=== PATIENT | male | born 1995 | race Caucasian/White ===

== ENCOUNTER 2016-07-26 10:30 | Emergency (ER) | payer MEDICAID, SELFPAY ==
[2016-07-26] MEDS ORDERED: ACETAMINOPHEN 325 MG TAB As Ordered ONE (10:59)
[2016-07-26] MEDS ORDERED: ONDANSETRON 4 MG ORAL DISINTEGRATING TAB (S0181) As Ordered ONE (10:59)
--- NOTE | 2016-07-26 11:10 | EDDOCDS ---
Physician Documentation [facility] Name: Thomas Deluca Age: 21 yrs Sex: Male : 1995 Arrival Date: 07/26/2016 Time: 10:30 Bed TR8 Private MD: Disposition: 07/26/16 11:00 Discharged to Home/Self Care. Impression: Influenza due to unidentified influenza virus. - Condition is Stable. - Discharge Instructions: Influenza Adult. - Prescriptions for ZOFRAN ODT 4 mg - dissolve 1 tablet by ORAL route 4 times per day As needed do not chew, do not swallow whole; 10 tablet. - Medication Reconciliation form. - Follow up: Emergency Department; When: As needed. [facility]; When: Call to arrange an appointment; Reason: Recheck today's complaints, Continuance of care, To establish care. - Problem is an ongoing problem. - Symptoms are unchanged. Historical: - Allergies: no known allergies; - Home Meds: 1. none - PMHx: none; - PSHx: none; - Social history: Smoking status: Patient states was never smoker of tobacco. Patient/guardian denies using alcohol, street drugs, No barriers to communication noted, The patient speaks fluent Albanian, Speaks appropriately for age. - Family history: No immediate family members are acutely ill. - : The pt / caregiver states he / she is not on anticoagulants. Home medication list is obtained from the patient. - Exposure Risk Screening:: None identified. Vital Signs: 07/26 10:32 BP 162 / 71 RA Sitting (auto/reg); Pulse 107; Resp 18; Temp 100.9(O); Pulse Ox 97% on jrd R/A; Weight 81.19 kg / 178.99 lbs (R); Height 6 ft. 1 in. (185.42 cm) (R); Pain 3/10; 10:32 Body Mass Index 23.62 (81.19 kg, 185.42 cm) jrd MDM: 10:58 Acetaminophen Tablet 650 mg PO once ordered. cc10 10:58 Ondansetron ODT Oral Disintegrating Tablet 4 mg PO once ordered. cc10 11:07 Financial registration complete. mm15 Administered Medications: 11:02 Drug: Acetaminophen 650 mg [acetaminophen 325 mg tablet (2 tabs)] Route: PO; ttb 11:02 Drug: Ondansetron ODT 4 mg [ondansetron 4 mg disintegrating tablet (1 tabs)] Route: PO; ttb Signatures: Ashley Salguero RN RN ttb Carl Enciso mm15 Fernando Marquez, PAAdielC PA-C cc10 Luis Morris RN RN mb9 MTDD
--- NOTE | 2016-07-26 11:10 | EDDOCDS ---
Nurse's Notes [facility] Name: Thomas Deluca Age: 21 yrs Sex: Male : 1995 Arrival Date: 07/26/2016 Time: 10:30 Bed TR8 Private MD: Diagnosis: Influenza due to unidentified influenza virus Presentation: 07/26 10:40 Presenting complaint: Patient states: stomach pains, n/v/d x2 days. Adult Sepsis ttb Screening: The patient does not have new or worsening altered mentation. Adult Sepsis Screening: Patient's respiratory rate is less than 22. Systolic blood pressure is greater than 100. Patient has a qSOFA score of 0- Negative Sepsis Screen. Suicide/Homicide risk assessment- the patient denies having any suicidal and/or homicidal ideations and does not present with any other emotional, behavioral or mental health complaints. Status: Patient is not a health service worker or dependent. Transition of care: patient was not received from another setting of care. 10:40 Acuity: JAVON Level 3 ttb 10:40 Method Of Arrival: Walkin/Carried/Asstd ttb Triage Assessment: 10:41 General: Appears in no apparent distress, well nourished, Behavior is appropriate for ttb age, cooperative, pleasant. Pain: Location: generalized abd pain (mainly with vomiting). Pt Declines HIV testing. Neurological: Level of Consciousness is awake, alert. Cardiovascular: Chest pain is denied. Respiratory: No deficits noted. Airway is patent Denies cough, shortness of breath. GI: Reports lower abdominal pain, upper abd pain, nausea, vomiting. Derm: Skin is normal. Injury Description: No known injury. Historical: - Allergies: no known allergies; - Home Meds: 1. none - PMHx: none; - PSHx: none; - Social history: Smoking status: Patient states was never smoker of tobacco. Patient/guardian denies using alcohol, street drugs, No barriers to communication noted, The patient speaks fluent Malawian, Speaks appropriately for age. - Family history: No immediate family members are acutely ill. - : The pt / caregiver states he / she is not on anticoagulants. Home medication list is obtained from the patient. - Exposure Risk Screening:: None identified. Screenin:07 Screening information is obtained from the patient. Fall risk: No risks identified. mb9 Assistance ADL's: requires no assistance with activities of daily living. Abuse/DV Screen: The patient / caregiver reports he/she is: not in a situation that causes fear, pain or injury. Nutritional screening: No deficits noted. Advance Directives: There is no active DNR order. home support is adequate. Assessment: 11:07 General: Appears in no apparent distress, Behavior is appropriate for age, cooperative. mb9 Respiratory: Airway is patent Respiratory effort is even, unlabored. GI: Reports nausea. Vital Signs: 10:32 BP 162 / 71 RA Sitting (auto/reg); Pulse 107; Resp 18; Temp 100.9(O); Pulse Ox 97% on jrd R/A; Weight 81.19 kg (R); Height 6 ft. 1 in. (185.42 cm) (R); Pain 3/10; 10:32 Body Mass Index 23.62 (81.19 kg, 185.42 cm) jrd Vitals: 10:32 Log In Time: July 26, 2016 at 10:28. d ED Course: 10:31 Patient visited by Dany Bauer PCA. jrd 10:31 Patient moved to Waiting jrd 10:33 Patient visited by Dany Bauer PCA. jrd 10:33 Patient moved to Pre RCE jrd 10:41 Triage Initiated ttb 10:43 Patient moved to Triage 3 ttb 10:44 Fernando Marquez PA-C is PHCP. cc10 10:44 Martinez Osorio MD is Attending Physician. cc10 10:53 Patient visited by Fernando Marquez PA-C. cc10 10:53 Patient visited by Fernando Marquez PA-C. cc10 11:00 [facility] is Referral Physician. cc10 11:07 Patient moved to TR8 mb9 11:07 The patient / caregiver is instructed regarding the plan of care and ED course. mb9 11:07 No IV's were initiated during this patient's visit. No procedures done that require mb9 assistance. Administered Medications: 11:02 Drug: Acetaminophen 650 mg [acetaminophen 325 mg tablet (2 tabs)] Route: PO; ttb 11:02 Drug: Ondansetron ODT 4 mg [ondansetron 4 mg disintegrating tablet (1 tabs)] Route: PO; ttb Order Results: There are currently no results for this order. Outcome: 11:00 Discharge ordered by Provider. cc10 11:07 Discharge Assessment: patient administered narcotics - no. The following High Risk mb9 Discharge criteria are identified: None. Discharged to home ambulatory. Condition: good Condition: stable Condition: improved. Discharge instructions given to patient, Instructed on discharge instructions, follow up and referral plans. medication usage, Demonstrated understanding of instructions, medications, Pt was receptive of discharge instructions/ teaching. Prescriptions given X 1. No special radiology studies were completed. Property :Personal belongings accompany Pt. 11:09 Patient left the ED. mb9 Signatures: Ashley Salguero, RN RN ttb Fernando Marquez, PA-C PA-C cc10 Dayn Bauer, ASSOCIATE ARTISTIC DIRECTOR ASSOCIATE ARTISTIC DIRECTOR jrd Luis Morris,RN RN mb9 MTDLeslye
--- NOTE | 2016-07-28 12:10 | EDDOCDS ---
Physician Documentation [facility] Name: Thomas Deluca Age: 21 yrs Sex: Male : 1995 Arrival Date: 07/26/2016 Time: 10:30 Bed TR8 Private MD: Disposition: 07/26/16 11:00 Discharged to Home/Self Care. Impression: Influenza due to unidentified influenza virus. - Condition is Stable. - Discharge Instructions: Influenza Adult. - Prescriptions for ZOFRAN ODT 4 mg - dissolve 1 tablet by ORAL route 4 times per day As needed do not chew, do not swallow whole; 10 tablet. - Medication Reconciliation form. - Follow up: Emergency Department; When: As needed. [facility]: [facility]; When: Call to arrange an appointment; Reason: Recheck today's complaints, Continuance of care, To establish care. - Problem is an ongoing problem. - Symptoms are unchanged. Historical: - Allergies: no known allergies; - Home Meds: 1. none - PMHx: none; - PSHx: none; - Social history: Smoking status: Patient states was never smoker of tobacco. Patient/guardian denies using alcohol, street drugs, No barriers to communication noted, The patient speaks fluent Upper Sorbian, Speaks appropriately for age. - Family history: No immediate family members are acutely ill. - : The pt / caregiver states he / she is not on anticoagulants. Home medication list is obtained from the patient. - Exposure Risk Screening:: None identified. Vital Signs: 07/26 10:32 BP 162 / 71 RA Sitting (auto/reg); Pulse 107; Resp 18; Temp 100.9(O); Pulse Ox 97% on jrd R/A; Weight 81.19 kg / 178.99 lbs (R); Height 6 ft. 1 in. (185.42 cm) (R); Pain 3/10; 10:32 Body Mass Index 23.62 (81.19 kg, 185.42 cm) jrd MDM: 10:58 Acetaminophen Tablet 650 mg PO once ordered. cc10 10:58 Ondansetron ODT Oral Disintegrating Tablet 4 mg PO once ordered. cc10 11:07 Financial registration complete. mm15 11:13 [facility] Payment Agreement was scanned into [employer] and attached to record. mm15 14:08 T-Sheet-- Draft Copy was scanned into [employer] and attached to record. klr Administered Medications: 11:02 Drug: Acetaminophen 650 mg [acetaminophen 325 mg tablet (2 tabs)] Route: PO; ttb 11:02 Drug: Ondansetron ODT 4 mg [ondansetron 4 mg disintegrating tablet (1 tabs)] Route: PO; ttb Signatures: Ashley Salguero RN RN ttb Carl Enciso mm15 Fernando Marquez PA-C PASummer cc10 Luis Morris RN RN mb9 Alexandra John klr The chart was reviewed and I authenticate all verbal orders and agree with the evaluation and treatment provided.Attachments: 11:13 [facility] Payment Agreement mm15 14:08 T-Sheet-- Draft Copy klr Chart Complete MTDD
--- NOTE | 2016-07-28 12:10 | EDDOCDS ---
Nurse's Notes [facility] Name: Thomas Deluca Age: 21 yrs Sex: Male : 1995 Arrival Date: 07/26/2016 Time: 10:30 Bed TR8 Private MD: Diagnosis: Influenza due to unidentified influenza virus Presentation: 07/26 10:40 Presenting complaint: Patient states: stomach pains, n/v/d x2 days. Adult Sepsis ttb Screening: The patient does not have new or worsening altered mentation. Adult Sepsis Screening: Patient's respiratory rate is less than 22. Systolic blood pressure is greater than 100. Patient has a qSOFA score of 0- Negative Sepsis Screen. Suicide/Homicide risk assessment- the patient denies having any suicidal and/or homicidal ideations and does not present with any other emotional, behavioral or mental health complaints. Status: Patient is not a automobile service station attendant or dependent. Transition of care: patient was not received from another setting of care. 10:40 Acuity: JAVON Level 3 ttb 10:40 Method Of Arrival: Walkin/Carried/Asstd ttb Triage Assessment: 10:41 General: Appears in no apparent distress, well nourished, Behavior is appropriate for ttb age, cooperative, pleasant. Pain: Location: generalized abd pain (mainly with vomiting). Pt Declines HIV testing. Neurological: Level of Consciousness is awake, alert. Cardiovascular: Chest pain is denied. Respiratory: No deficits noted. Airway is patent Denies cough, shortness of breath. GI: Reports lower abdominal pain, upper abd pain, nausea, vomiting. Derm: Skin is normal. Injury Description: No known injury. Historical: - Allergies: no known allergies; - Home Meds: 1. none - PMHx: none; - PSHx: none; - Social history: Smoking status: Patient states was never smoker of tobacco. Patient/guardian denies using alcohol, street drugs, No barriers to communication noted, The patient speaks fluent Botswanan, Speaks appropriately for age. - Family history: No immediate family members are acutely ill. - : The pt / caregiver states he / she is not on anticoagulants. Home medication list is obtained from the patient. - Exposure Risk Screening:: None identified. Screenin:07 Screening information is obtained from the patient. Fall risk: No risks identified. mb9 Assistance ADL's: requires no assistance with activities of daily living. Abuse/DV Screen: The patient / caregiver reports he/she is: not in a situation that causes fear, pain or injury. Nutritional screening: No deficits noted. Advance Directives: There is no active DNR order. home support is adequate. Assessment: 11:07 General: Appears in no apparent distress, Behavior is appropriate for age, cooperative. mb9 Respiratory: Airway is patent Respiratory effort is even, unlabored. GI: Reports nausea. Vital Signs: 10:32 BP 162 / 71 RA Sitting (auto/reg); Pulse 107; Resp 18; Temp 100.9(O); Pulse Ox 97% on jrd R/A; Weight 81.19 kg (R); Height 6 ft. 1 in. (185.42 cm) (R); Pain 3/10; 10:32 Body Mass Index 23.62 (81.19 kg, 185.42 cm) jrd Vitals: 10:32 Log In Time: July 26, 2016 at 10:28. d ED Course: 10:31 Patient visited by Dany Bauer PCA. jrd 10:31 Patient moved to Waiting jrd 10:33 Patient visited by Dany Bauer PCA. jrd 10:33 Patient moved to Pre RCE jrd 10:41 Triage Initiated ttb 10:43 Patient moved to Triage 3 ttb 10:44 Fernando Marquez PA-C is PHCP. cc10 10:44 Martinez Osorio MD is Attending Physician. cc10 10:53 Patient visited by Fernando Marquez PA-C. cc10 10:53 Patient visited by Fernando Marquez PA-C. cc10 11:00 [facility] is Referral Physician. cc10 11:07 Patient moved to TR8 mb9 11:07 The patient / caregiver is instructed regarding the plan of care and ED course. mb9 11:07 No IV's were initiated during this patient's visit. No procedures done that require mb9 assistance. 11:13 [facility] [place] Payment Agreement was scanned into [employer] and attached to record. mm15 14:08 T-Sheet-- Draft Copy was scanned into [employer] and attached to record. klr Administered Medications: 11:02 Drug: Acetaminophen 650 mg [acetaminophen 325 mg tablet (2 tabs)] Route: PO; ttb 11:02 Drug: Ondansetron ODT 4 mg [ondansetron 4 mg disintegrating tablet (1 tabs)] Route: PO; ttb Order Results: There are currently no results for this order. Outcome: 11:00 Discharge ordered by Provider. cc10 11:07 Discharge Assessment: patient administered narcotics - no. The following High Risk mb9 Discharge criteria are identified: None. Discharged to home ambulatory. Condition: good Condition: stable Condition: improved. Discharge instructions given to patient, Instructed on discharge instructions, follow up and referral plans. medication usage, Demonstrated understanding of instructions, medications, Pt was receptive of discharge instructions/ teaching. Prescriptions given X 1. No special radiology studies were completed. Property :Personal belongings accompany Pt. 11:09 Patient left the ED. mb9 Signatures: Ashley Salguero, RN RN ttb Carl Enciso mm15 Fernando Marquez, PA-C PA-C cc10 Dany Bauer, DIRECTOR OF ONCOLOGY DIRECTOR OF ONCOLOGY Luis PowellRN RN mb9 Alexandra John Chart Complete MTDLeslye
--- NOTE | 2016-07-28 12:10 | EDDOCDS ---
Physician Documentation [facility] Name: Thomas Deluca Age: 21 yrs Sex: Male : 1995 Arrival Date: 07/26/2016 Time: 10:30 Bed TR8 Private MD: Disposition: 07/26/16 11:00 Discharged to Home/Self Care. Impression: Influenza due to unidentified influenza virus. - Condition is Stable. - Discharge Instructions: Influenza Adult. - Prescriptions for ZOFRAN ODT 4 mg - dissolve 1 tablet by ORAL route 4 times per day As needed do not chew, do not swallow whole; 10 tablet. - Medication Reconciliation form. - Follow up: Emergency Department; When: As needed. Follow [facility]: [facility]; When: Call to arrange an appointment; Reason: Recheck today's complaints, Continuance of care, To establish care. - Problem is an ongoing problem. - Symptoms are unchanged. Historical: - Allergies: no known allergies; - Home Meds: 1. none - PMHx: none; - PSHx: none; - Social history: Smoking status: Patient states was never smoker of tobacco. Patient/guardian denies using alcohol, street drugs, No barriers to communication noted, The patient speaks fluent Welsh, Speaks appropriately for age. - Family history: No immediate family members are acutely ill. - : The pt / caregiver states he / she is not on anticoagulants. Home medication list is obtained from the patient. - Exposure Risk Screening:: None identified. Vital Signs: 07/26 10:32 BP 162 / 71 RA Sitting (auto/reg); Pulse 107; Resp 18; Temp 100.9(O); Pulse Ox 97% on jrd R/A; Weight 81.19 kg / 178.99 lbs (R); Height 6 ft. 1 in. (185.42 cm) (R); Pain 3/10; 10:32 Body Mass Index 23.62 (81.19 kg, 185.42 cm) jrd MDM: 10:58 Acetaminophen Tablet 650 mg PO once ordered. cc10 10:58 Ondansetron ODT Oral Disintegrating Tablet 4 mg PO once ordered. cc10 11:07 Financial registration complete. mm15 11:13 [facility] Payment Agreement was scanned into [employer] and attached to record. mm15 14:08 T-Sheet-- Draft Copy was scanned into [employer] and attached to record. klr Administered Medications: 11:02 Drug: Acetaminophen 650 mg [acetaminophen 325 mg tablet (2 tabs)] Route: PO; ttb 11:02 Drug: Ondansetron ODT 4 mg [ondansetron 4 mg disintegrating tablet (1 tabs)] Route: PO; ttb Signatures: Ashley Salguero RN RN ttb Carl Enciso mm15 Fernando Marquez PA-C PASummer cc10 Luis Morris RN RN mb9 Alexandra John klr The chart was reviewed and I authenticate all verbal orders and agree with the evaluation and treatment provided.Attachments: 11:13 [facility] Payment Agreement mm15 14:08 T-Sheet-- Draft Copy klr Chart Complete MTDD
== END 2016-07-26 11:09 | disposition home or self-care (01) ==
LOC: M ED 10:30
DX: J10.1 Influenza due to other identified influenza virus with other respiratory manifestations (principal)

== ENCOUNTER 2016-10-06 08:51 | Emergency (ER) | payer MEDICAID, OTHER ==
[~2016-10-06] VITALS: Ht 170.2 cm; Wt 78.0 kg
[2016-10-06 08:53] VITALS: BP 138/66
[2016-10-06] MEDS ORDERED: NS 1,000 ML IV ONE (10:30)
[2016-10-06] MEDS ORDERED: ONDANSETRON 4MG/2ML VIAL (J2405) IV ONE (10:30)
--- NOTE | 2016-10-06 11:20 | REP ---
ABDOMINAL SERIES: Supine and erect views of the abdomen demonstrate no free air and no compelling evidence for obstruction. No dilated small bowel loops are seen and there are no air-fluid levels on the upright view. No abnormal calcifications are seen in the abdomen or pelvis. The visualized osseous structures appear unremarkable. An accompanying view of the chest demonstrates no acute infiltrate. The heart is normal in size. IMPRESSION: Negative abdominal series. Signed by Luis Alberto Lanier MD 10/06/2016 04:37 P
[2016-10-06 11:21] LABS: BASO % 0.1 % (0.0-1.0); EOS # 0.4 K/mm3 (0.0-0.50); EOS % 4.2 % (0.0-3.0); LARGE UNSTAINED CELL # 0.1 K/mm3 (0.0-0.4); LARGE UNSTAINED CELL % 1.2 % (0.0-4.0); LYMPH # 1.1 K/mm3 (1.5-6.5); LYMPH % 11.4 % (24.0-44.0); MEAN CORPUSCULAR HEMOGLOBIN 31.2 pg (27.0-33.0); MEAN CORPUSCULAR HGB CONC 36.2 g/dl (32.0-36.5); MEAN CORPUSCULAR VOLUME 86.1 fl (80.0-96.0); MONO # 0.4 K/mm3 (0.0-0.8); MONO % 4.3 % (0.0-5.0); NEUTROPHILS # 7.4 K/mm3 (1.8-7.7); NEUTROPHILS % 78.7 % (36.0-66.0); PLATELET COUNT, AUTOMATED 211 k/mm3 (150-450); RED CELL DISTRIBUTION WIDTH 12.9 % (11.5-14.5); WHITE BLOOD COUNT 9.4 K/mm3 (4.0-10.0)
[2016-10-06 11:23] LABS: INR 1.09
[2016-10-06 11:36] LABS: ALBUMIN 4.1 GM/DL (3.2-5.2); ALBUMIN/GLOBULIN RATIO 1.24 (1.00-1.93); ALKALINE PHOSPHATASE 89 U/L (45-117); ALT/SGPT 24 U/L (12-78); AMYLASE 41 U/L (25-115); ANION GAP 3 MEQ/L (8-16); AST/SGOT 17 U/L (15-37); BILIRUBIN,DIRECT 0.2 MG/DL (0.0-0.2); BILIRUBIN,TOTAL 0.6 MG/DL (0.2-1.0); BLOOD UREA NITROGEN 9 MG/DL (7-18); CALCIUM LEVEL 8.8 MG/DL (8.5-10.1); CARBON DIOXIDE LEVEL 32 MEQ/L (21-32); CHLORIDE LEVEL 104 MEQ/L (98-107); CREATININE FOR GFR 0.87 MG/DL (0.70-1.30); GLOMERULAR FILTRATION RATE > 60.0 (>60); GLUCOSE, FASTING 114 MG/DL (70-105); POTASSIUM SERUM 4.2 MEQ/L (3.5-5.1); SODIUM LEVEL 139 MEQ/L (136-145); TOTAL PROTEIN 7.4 GM/DL (6.4-8.2)
[2016-10-06] MEDS ORDERED: cefTRIAXone SOD 250 MG VIAL (J0696) IM ONE (12:00)
[2016-10-06] MEDS ORDERED: AZITHROMYCIN 250 MG TAB PO ONE (12:00)
[2016-10-06] MEDS ORDERED: CIPR500T89 PO (12:04)
[2016-10-06] MEDS ORDERED: ZOFR4TAB3 PO (12:04)
[2016-10-06] MEDS ORDERED: LIDOCAINE 1% MDV 20ML VIAL As Ordered ONE (12:17)
== END 2016-10-06 12:40 | disposition home or self-care (01) ==
LOC: M ED 09:53
DX: K29.70 Gastritis, unspecified, without bleeding (principal); N39.0 Urinary tract infection, site not specified; Z87.891 Personal history of nicotine dependence

== ENCOUNTER 2016-12-25 13:58 | Emergency (ER) | payer OTHER ==
[~2016-12-25] VITALS: Ht 185.4 cm; Wt 79.1 kg
[~2016-12-25 13:58] MED LIST: CIPR-249 PO; ZOFR4TAB3 PO
[2016-12-25] MEDS ORDERED: ONDANSETRON 4 MG ORAL DISINTEGRATING TAB (S0181) PO ONE (15:15)
[2016-12-25] MEDS ORDERED: MACR100C43 PO (16:03)
[2016-12-25] MEDS ORDERED: ZOFR4TAB3 PO (16:03)
[2016-12-25 16:08] VITALS: BP 126/60
== END 2016-12-25 16:16 | disposition home or self-care (01) ==
LOC: M ED 13:58
DX: N39.0 Urinary tract infection, site not specified (principal); R11.2 Nausea with vomiting, unspecified

== ENCOUNTER 2016-12-26 16:22 | Emergency (ER) | payer OTHER ==
[~2016-12-26] VITALS: Ht 188 cm; Wt 54.5 kg
[~2016-12-26 16:22] MED LIST changes: +MACR100C43 PO
[2016-12-26 16:23] VITALS: BP 149/66
[2016-12-26] MEDS ORDERED: KETOROLAC 30 MG/ML VIAL (J1885) IV ONE (17:00)
[2016-12-26] MEDS ORDERED: METOCLOPRAMIDE INJ 10MG/2ML VIAL (J2765) IV ONE (17:00)
[2016-12-26] MEDS ORDERED: diphenhydrAMINE INJ 50MG/ML VIAL (J1200) IV ONE (17:00)
[2016-12-26 17:29] LABS: BASO % 0.5 % (0.0-1.0); EOS # 0.7 K/mm3 (0.0-0.50); EOS % 10.7 % (0.0-3.0); LARGE UNSTAINED CELL # 0.1 K/mm3 (0.0-0.4); LARGE UNSTAINED CELL % 2.1 % (0.0-4.0); LYMPH # 1.8 K/mm3 (1.5-6.5); LYMPH % 26.3 % (24.0-44.0); MEAN CORPUSCULAR HEMOGLOBIN 30.5 pg (27.0-33.0); MEAN CORPUSCULAR VOLUME 84.7 fl (80.0-96.0); MONO # 0.4 K/mm3 (0.0-0.8); MONO % 6.1 % (0.0-5.0); NEUTROPHILS # 3.6 K/mm3 (1.8-7.7); NEUTROPHILS % 54.2 % (36.0-66.0); PLATELET COUNT, AUTOMATED 214 k/mm3 (150-450); RED CELL DISTRIBUTION WIDTH 12.2 % (11.5-14.5); WHITE BLOOD COUNT 6.6 K/mm3 (4.0-10.0)
[2016-12-26 17:42] LABS: ANION GAP 8 MEQ/L (8-16); BLOOD UREA NITROGEN 16 MG/DL (7-18); CALCIUM LEVEL 8.8 MG/DL (8.5-10.1); CARBON DIOXIDE LEVEL 27 MEQ/L (21-32); CHLORIDE LEVEL 105 MEQ/L (98-107); CREATININE FOR GFR 1.07 MG/DL (0.70-1.30); GLOMERULAR FILTRATION RATE > 60.0 (>60); GLUCOSE, FASTING 101 MG/DL (70-105); POTASSIUM SERUM 3.9 MEQ/L (3.5-5.1); SODIUM LEVEL 140 MEQ/L (136-145)
--- NOTE | 2016-12-26 19:09 | REP ---
CT study brain without contrast: History: Sudden onset headache. Comparison head CT study 09/03/2013. Findings: No intraorbital abnormality is seen. Visualized paranasal sinuses are clear. No bony calvarial lesion is seen. No significant scalp lesion is observed. On soft tissue window settings, the lateral, third, and fourth ventricles are normal in size and position. Lanier-white differentiation pattern is normal above and below the tentorium. There is no evidence of intracranial hemorrhage. No extra-axial fluid collection is seen. No mass, infarct, or midline shift is seen. Impression: Negative noncontrast head CT. No change from comparison study. Signed by Miguel A Tobar MD 12/26/2016 07:26 P
== END 2016-12-26 19:35 | disposition home or self-care (01) ==
LOC: M ED 16:22
DX: G43.909 Migraine, unspecified, not intractable, without status migrainosus (principal); Z79.2 Long term (current) use of antibiotics
CPT/HCPCS: 70450; 80048; 85025; 96374; 96375; 99283; J1200; J1885; J2765

== ENCOUNTER 2017-04-01 15:09 | Emergency (ER) | payer OTHER ==
[~2017-04-01] VITALS: Ht 188 cm; Wt 64.5 kg
[2017-04-01 15:11] VITALS: BP 139/65
== END 2017-04-01 16:08 | disposition left against medical advice (07) ==
LOC: M ED 15:09
DX: Z53.21 Procedure and treatment not carried out due to patient leaving prior to being seen by health care provider (principal)

== ENCOUNTER 2018-05-05 17:10 | Emergency (ER) | payer OTHER ==
[2018-05-05] MEDS: IBUPROFEN 800 MG TAB PO (18:13)
== END 2018-05-05 18:18 | disposition home or self-care (01) ==
LOC: M ED 17:10
DX: S40.011A Contusion of right shoulder, initial encounter (principal); V48.0XXA Car driver injured in noncollision transport accident in nontraffic accident, initial encounter
CPT/HCPCS: 73030

== ENCOUNTER 2018-12-26 06:52 | Emergency (ER) | payer OTHER, SELFPAY ==
[~2018-12-26] VITALS: Ht 188 cm; Wt 86.4 kg
[~2018-12-26 06:52] MED LIST changes: +NAPR-837 PO; +ZOFR4TAB14 PO; -ZOFR4TAB3 PO
[2018-12-26 09:02] LABS: BASO % 0.5 % (0.0-1.0); EOS # 0.3 10^3/uL (0.0-0.50); EOS % 2.9 % (0.0-3.0); HEMATOCRIT 41.9 % (42.0-52.0); HEMOGLOBIN 14.3 g/dl (13.5-17.5); LYMPH # 1.3 10^3/uL (1.5-6.5); MEAN CORPUSCULAR HEMOGLOBIN 30.4 pg (27.0-33.0); MEAN CORPUSCULAR HGB CONC 34.1 g/dl (32.0-36.5); MEAN CORPUSCULAR VOLUME 89.1 fl (80.0-96.0); MONO # 0.6 10^3/uL (0.0-0.8); MONO % 6.8 % (0.0-5.0); NEUTROPHILS # 6.5 10^3/uL (1.8-7.7); NEUTROPHILS % 74.6 % (36.0-66.0); PLATELET COUNT, AUTOMATED 214 10^3/uL (150-450); WHITE BLOOD COUNT 8.7 10^3/uL (4.0-10.0)
[2018-12-26] MEDS ORDERED: PYRI1TAB5 PO (09:25)
[2018-12-26 09:35] VITALS: BP 125/59
== END 2018-12-26 09:40 | disposition home or self-care (01) ==
LOC: M ED 06:52
DX: R30.0 Dysuria (principal); R31.29 Other microscopic hematuria; Z87.891 Personal history of nicotine dependence

== ENCOUNTER 2019-02-17 20:11 | Emergency (ER) | payer SELFPAY ==
[~2019-02-17] VITALS: Ht 188 cm; Wt 82.7 kg
[~2019-02-17 20:11] MED LIST changes: +PYRI1TAB5 PO
[2019-02-17 20:26] VITALS: BP 140/69
== END 2019-02-17 22:41 | disposition home or self-care (01) ==
LOC: M ED 20:11
DX: Z60.8 Other problems related to social environment (principal)

== ENCOUNTER 2024-12-16 14:23 | Emergency (ER) | payer OTHER, SELFPAY ==
[~2024-12-16] VITALS: Ht 170.2 cm; Wt 81.8 kg
[2024-12-16] MEDS: METHOCARBAMOL 1,000 MG/10 ML VIAL IV ONE (16:35)
[2024-12-16] MEDS: KETOROLAC 30 MG/ML 1 ML VIAL IV ONE (16:36)
[2024-12-16] MEDS ORDERED: METH-1164 PO (17:42)
[2024-12-16 17:51] VITALS: BP 115/57; TEMP 97.7; O2SAT 99
== END 2024-12-16 17:54 | disposition home or self-care (01) ==
LOC: M ED 14:23
DX: M54.50 Low back pain, unspecified (principal); F19.10 Other psychoactive substance abuse, uncomplicated; Z79.899 Other long term (current) drug therapy
CPT/HCPCS: 96374; 96375; 99284; J1885; J2800

== ENCOUNTER 2024-12-25 10:31 | Emergency (ER) | payer OTHER ==
[~2024-12-25] VITALS: Ht 188 cm; Wt 86.4 kg
[~2024-12-25 10:31] MED LIST changes: +METH-1164 PO
[2024-12-25 11:59] LABS: KETONE, URINE AUTO RFX TRACE mg/dL (NEGATIVE); NITRITE, URINE AUTO RFX NEGATIVE (NEGATIVE); RBC, URINE AUTO RFX 4 /HPF (0-3); SQUAM EPITHELIAL CELL UR AURFX 0 /HPF (0-6)
[2024-12-25 12:06] LABS: LEUKOCYTE ESTERASE UR AUTO RFX TRACE (NEGATIVE); WBC, URINE AUTO RFX 82 /HPF (0-3)
[2024-12-25] MEDS: NS (Normal Saline) 0.9% 1,000 ML IV ONE (12:40)
[2024-12-25] MEDS: KETOROLAC 30 MG/ML 1 ML VIAL IV ONE (12:41)
[2024-12-25] MEDS: diphenhydrAMINE 50 MG/ML VIAL IV ONE (12:41)
[2024-12-25 12:49] LABS: BASO # 0.0 10^3/uL (0.0-0.2); BASO % 0.3 % (0.0-1.0); EOS # 0.1 10^3/uL (0.0-0.5); EOS % 0.8 % (0.0-3.0); LYMPH # 1.1 10^3/uL (1.5-5.0); LYMPH % 10.7 % (24.0-44.0); MONO # 0.5 10^3/uL (0.0-0.8); MONO % 5.4 % (2.0-8.0); NEUTROPHILS # 8.1 10^3/uL (1.5-8.5); NEUTROPHILS % 82.6 % (36.0-66.0); PLATELET COUNT, AUTOMATED 249 10^3/uL (150-450)
[2024-12-25 13:33] LABS: ALT/SGPT 19 U/L (7.0-40); AST/SGOT 25 U/L (<34); CALCIUM LEVEL 8.9 MG/DL (8.5-10.1); CARBON DIOXIDE LEVEL 23 MMOL/L (20-31); CHLORIDE LEVEL 106 MMOL/L (98-107); CREATININE FOR GFR 0.86 MG/DL (0.70-1.30); GLOMERULAR FILTRATION RATE > 90.0 (>60); POTASSIUM SERUM 4.1 MMOL/L (3.5-5.1); SODIUM LEVEL 142 MMOL/L (136-145)
[2024-12-25 15:41] VITALS: BP 106/58; TEMP 98.3; O2SAT 99
[2024-12-25] MEDS ORDERED: SULF1TAB23 PO (18:45)
== END 2024-12-25 19:02 | disposition home or self-care (01) ==
LOC: M ED 10:31
DX: G43.909 Migraine, unspecified, not intractable, without status migrainosus (principal); N39.0 Urinary tract infection, site not specified; Z79.899 Other long term (current) drug therapy
CPT/HCPCS: 70450; 80053; 81001; 85025; 87086; 96361; 96374; 96375; 99284; J1100; J1200; J1885; J2765